=== PATIENT | male | born 1970 | race African-American/Black ===

== ENCOUNTER 2016-12-30 02:33 | Emergency (ER) | payer SELFPAY ==
[~2016-12-30] VITALS: Ht 180.3 cm; Wt 91.0 kg
[~2016-12-30 02:33] MED LIST: ADVA250A INH; ALBU0.08 NEB; ALBUAER3 INH; CETI10 PO; LORA10TA PO; MULT1TAB85 PO; NEBULIZER1 MI1
[2016-12-30 02:36] VITALS: BP 145/77; PULSE 95; RESP 28; TEMP 98; O2SAT 98
[2016-12-30 02:55] VITALS: O2SAT 99
[2016-12-30] MEDS: RESP: ALBUTEROL 2.5 MG/IPRATROPIUM 0.5 MG NEB (SCH) INH ×2 (02:58→02:59)
[2016-12-30] MEDS ORDERED: methylPREDNISolone SOD SUCC 125 MG/2 ML VIAL IVP ONE (03:00)
[2016-12-30] MEDS ORDERED: SODIUM CHLORIDE 0.9% FLUSH 5 ML FLUSH IVF PRN (03:00)
--- NOTE | 2016-12-30 03:25 | RADRPT ---
EXAM DATE/TIME: 12/30/2016 03:05 [place] COMPARISON: CHEST SINGLE AP, April 02, 2016, 6:19. INDICATIONS : Short of breath. MEDICAL HISTORY : None. SURGICAL HISTORY : None. ENCOUNTER: Initial ACUITY: 1 day PAIN SCORE: 8/10 LOCATION: Bilateral chest FINDINGS: Single AP view of the chest. The lungs are clear. Cardiomediastinal silhouette within normal limits. No evidence of pleural effusion or pneumothorax. CONCLUSION: No acute cardiopulmonary disease identified. Gustavo Andersen MD on December 30, 2016 at 3:22 Board Certified Radiologist. This report was verified electronically.
[2016-12-30 03:30] LABS: AUTOMATED NEUTROPHIL # 3.6 TH/MM3 (1.8-7.7); BASOPHIL % 0.4 % (0.0-2.0); EOSINOPHIL # 0.1 TH/MM3 (0-0.4); EOSINOPHIL % 1.4 % (0.0-4.0); HEMATOCRIT 43.6 % (39.0-51.0); HEMO FLAGS DIFF FINAL; LYMPH % 38.7 % (9.0-44.0); LYMPHOCYTE # 3.2 TH/MM3 (1.0-4.8); MEAN CELL VOLUME 86.7 FL (80.0-100.0); MEAN CORPUSCULAR HEMOGLOBIN 28.6 PG (27.0-34.0); MEAN CORPUSCULAR HGB CONC 32.9 % (32.0-36.0); MONO % 16.5 % (0.0-8.0); PLATELET COUNT 161 TH/MM3 (150-450); RED BLOOD COUNT 5.03 MIL/MM3 (4.50-5.90); RED CELL DISTRIBUTION WIDTH 14.2 % (11.6-17.2); WHITE BLOOD COUNT 8.4 TH/MM3 (4.0-11.0)
[2016-12-30 03:41] LABS: ALT (GPT) 34 U/L (12-78); ANION GAP 9 MEQ/L (5-15); AST (GOT) 18 U/L (15-37); BICARBONATE 29.2 MEQ/L (21.0-32.0); BLOOD UREA NITROGEN 20 MG/DL (7-18); CHLORIDE 103 MEQ/L (98-107); GLOMERULAR FILTRATION RATE 94 ML/MIN (>89); POTASSIUM 3.2 MEQ/L (3.5-5.1); SODIUM (NA) 141 MEQ/L (136-145)
[2016-12-30 03:45] LABS: ALKALINE PHOSPHATASE 60 U/L (45-117); CREATINE KINASE 473 U/L (39-308); TOTAL BILIRUBIN ADULT 0.4 MG/DL (0.2-1.0)
[2016-12-30 03:58] LABS: CKMB 6.1 NG/ML (0.5-3.6)
--- NOTE | 2016-12-30 04:36 | PD ---
HPI Chief Complaint: Respiratory Distress Time Seen by Provider: 02:51 Travel History International Travel<30 days: Yes Contact w/Intl Traveler<30days: Yes Name of Country Traveled to: [place] Traveled to known affect area: No History of Present Illness HPI The patient is a 46 year old male who presents to the [facility] emergency department with a history of cough, wheezing, shortness of breath that first began yesterday. He reports that he has had to use his rescue inhaler more frequently because of this. The patient reports having a tightening sensation in his chest when he attempts to take a deep breath. He reports that he has been using his albuterol nebulizer treatment without relief this evening. The patient was brought in by ambulance services. The patient had IV access obtained prior to arrival and was given Solu-Medrol 125 mg IV, and albuterol nebulizer treatments were also provided prior to arrival. The patient reports that his cough is at times productive of a white sputum. The patient denies any recent fevers, neck pain, abdominal pain, vomiting, diarrhea, urinary symptoms, or neurologic symptoms. [facility] Past Medical History Narrative Medical The patient's past medical history is significant for asthma, seasonal allergies , and a history of a kidney stone. Asthma: Yes Diminished Hearing: No Kidney Stones: Yes Respiratory: Yes (ASTHMA) Immunizations Current: Yes Past Surgical History Narrative Surgical The patient's past surgical history is significant for surgery related to kidney stones, cyst removal from thumb. Endocrine Surgery: Yes (KIDNEY STONE) Other Surgery: Yes (CYST FROM LEFT THUMB) Social History Alcohol Use: Yes (RARELY) Tobacco Use: No Substance Use: No Allergies-Medications (Allergen,Severity, Reaction): Coded Allergies: No Known Allergies (Unverified , 12/30/16) Reported Meds & Prescriptions Reported Meds & Active Scripts Active Medrol Dosepak (Methylprednisolone) 4 Mg Dspk 4 Mg PO DIRECTED Per Pharmacist direction Doxycycline Hyclate 100 Mg Cap 100 Mg PO BID Albuterol Neb (Albuterol Sulfate) 2.5 Mg/3 Ml Neb 2.5 Mg NEB Q4HR NEB While awake Proair Hfa 8.5 GM Inh (Albuterol Sulfate) 90 Mcg/Act Aer 2 Puff INH Q6H PRN 108 mcg/actuation Nebulizer 1 Mis Mis 1 Ea .ROUTE DIRECTED Reported Advair Diskus Inh (Fluticasone-Salmeterol Inh) 250-50 Mcg/Blist Aer 2 Puff INH BID Rinse mouth after use. Multivitamin Men (Multiple Vitamins W/ Minerals) 1 Tab Tab 1 Tab PO DAILY Loratadine 10 Mg Tab 10 Mg PO DAILY Cetirizine (Cetirizine HCl) 10 Mg Tab 10 Mg PO DAILY Review of Systems Except as stated in HPI: all other systems reviewed are Neg General / Constitutional: No: Fever Eyes: No: Visual changes HENT: Positive: Rhinitis, Congestion, No: Headaches Cardiovascular: Positive: Chest Pain or Discomfort (chest tightness when attempting to take a deep breath), Dyspnea on exertion Respiratory: Positive: Cough, Shortness of Breath, Wheezing Gastrointestinal: No: Abdominal Pain Genitourinary: No: Dysuria Musculoskeletal: No: Pain Skin: No Rash Neurologic: No: Weakness Psychiatric: No: Depression Endocrine: No: Polydipsia Hematologic/Lymphatic: No: Easy Bruising Physical Exam Narrative General: The patient is a well-developed well-nourished male in no acute distress. Head and Neck exam: Head is normocephalic atraumatic. Eyes: EOMI, pupils are equal round and reactive to light. Nose: Midline septum with pink mucous membranes Mouth: Dentition unremarkable. Moist mucus membranes. Posterior oropharynx is not erythematous. No tonsillar hypertrophy. Uvula midline. Airway patent. Neck: No palpable lymphadenopathy. No nuchal rigidity. No thyromegaly. Cardiovascular: Regular rate and rhythm without murmurs, gallops, or rubs. Lungs: Soft expiratory wheezes audible throughout bilateral lung alberts, no rhonchi, no crackles, no accessory muscle use. No tripoding. No rocks as well as abdominal breathing. Abdomen: Soft, without tenderness to palpation in all 4 quadrants of the abdomen. No guarding, rebound, or rigidity. Normal bowel sounds are audible. Extremities: No clubbing, cyanosis, or edema. 2+ pulses in all 4 extremities. No calf tenderness on palpation. Back: No spinous process tenderness to palpation. No costovertebral angle tenderness to palpation. Neurologic Exam: Grossly nonfocal. Skin Exam: No rash noted. Intact skin that is warm and dry. Data Data Last Documented VS Vital Signs Date Time Temp Pulse Resp B/P Pulse Ox O2 Delivery O2 Flow Rate FiO2 12/30/16 02:55 99 Nasal Cannula 2 12/30/16 02:36 98.0 95 28 145/77 Orders Complete Blood Count With Diff (12/30/16 02:52) Comprehensive Metabolic Panel (12/30/16 02:52) B-Type Natriuretic Peptide (12/30/16 02:52) Magnesium (Mg) (12/30/16 02:52) Ckmb (Isoenzyme) Profile (12/30/16 02:52) Troponin I (12/30/16 02:52) Blood Culture (12/30/16 02:52) Iv Access Insert/Monitor (12/30/16 02:52) Electrocardiogram (12/30/16 02:52) Ecg Monitoring (12/30/16 02:52) Oximetry (12/30/16 02:52) Oxygen Administration (12/30/16 02:52) Chest, Single Ap (12/30/16 02:52) Sodium Chloride 0.9% Flush (Ns Flush) (12/30/16 03:00) Methylprednisolone So Succ Inj (Solumedr (12/30/16 03:00) Albuterol-Ipratropium Neb (Duoneb Neb) (12/30/16 03:00) CKMB (12/30/16 01:57) CKMB% (12/30/16 01:57) Labs Laboratory Tests Test 12/30/16 01:57 White Blood Count 8.4 TH/MM3 Red Blood Count 5.03 MIL/MM3 Hemoglobin 14.4 GM/DL Hematocrit 43.6 % Mean Corpuscular Volume 86.7 FL Mean Corpuscular Hemoglobin 28.6 PG Mean Corpuscular Hemoglobin 32.9 % Concent Red Cell Distribution Width 14.2 % Platelet Count 161 TH/MM3 Mean Platelet Volume 10.3 FL Neutrophils (%) (Auto) 43.0 % Lymphocytes (%) (Auto) 38.7 % Monocytes (%) (Auto) 16.5 % Eosinophils (%) (Auto) 1.4 % Basophils (%) (Auto) 0.4 % Neutrophils # (Auto) 3.6 TH/MM3 Lymphocytes # (Auto) 3.2 TH/MM3 Monocytes # (Auto) 1.4 TH/MM3 Eosinophils # (Auto) 0.1 TH/MM3 Basophils # (Auto) 0.0 TH/MM3 CBC Comment DIFF FINAL Differential Comment Sodium Level 141 MEQ/L Potassium Level 3.2 MEQ/L Chloride Level 103 MEQ/L Carbon Dioxide Level 29.2 MEQ/L Anion Gap 9 MEQ/L Blood Urea Nitrogen 20 MG/DL Creatinine 1.03 MG/DL Estimat Glomerular Filtration 94 ML/MIN Rate Random Glucose 108 MG/DL Calcium Level 8.3 MG/DL Magnesium Level 2.0 MG/DL Total Bilirubin 0.4 MG/DL Aspartate Amino Transf 18 U/L (AST/SGOT) Alanine Aminotransferase 34 U/L (ALT/SGPT) Alkaline Phosphatase 60 U/L Total Creatine Kinase 473 U/L Creatine Kinase MB 6.1 NG/ML Creatine Kinase MB % 1.3 % Troponin I LESS THAN 0.02 NG/ML B-Type Natriuretic Peptide 12 PG/ML Total Protein 7.0 GM/DL Albumin 3.7 GM/DL [facility] Medical Decision Making Medical Screen Exam Complete: Yes Emergency Medical Condition: Yes Medical Record Reviewed: Yes Interpretation(s) Laboratory Tests Test 12/30/16 01:57 White Blood Count 8.4 TH/MM3 Red Blood Count 5.03 MIL/MM3 Hemoglobin 14.4 GM/DL Hematocrit 43.6 % Mean Corpuscular Volume 86.7 FL Mean Corpuscular Hemoglobin 28.6 PG Mean Corpuscular Hemoglobin 32.9 % Concent Red Cell Distribution Width 14.2 % Platelet Count 161 TH/MM3 Mean Platelet Volume 10.3 FL Neutrophils (%) (Auto) 43.0 % Lymphocytes (%) (Auto) 38.7 % Monocytes (%) (Auto) 16.5 % Eosinophils (%) (Auto) 1.4 % Basophils (%) (Auto) 0.4 % Neutrophils # (Auto) 3.6 TH/MM3 Lymphocytes # (Auto) 3.2 TH/MM3 Monocytes # (Auto) 1.4 TH/MM3 Eosinophils # (Auto) 0.1 TH/MM3 Basophils # (Auto) 0.0 TH/MM3 CBC Comment DIFF FINAL Differential Comment Sodium Level 141 MEQ/L Potassium Level 3.2 MEQ/L Chloride Level 103 MEQ/L Carbon Dioxide Level 29.2 MEQ/L Anion Gap 9 MEQ/L Blood Urea Nitrogen 20 MG/DL Creatinine 1.03 MG/DL Estimat Glomerular Filtration 94 ML/MIN Rate Random Glucose 108 MG/DL Calcium Level 8.3 MG/DL Magnesium Level 2.0 MG/DL Total Bilirubin 0.4 MG/DL Aspartate Amino Transf 18 U/L (AST/SGOT) Alanine Aminotransferase 34 U/L (ALT/SGPT) Alkaline Phosphatase 60 U/L Total Creatine Kinase 473 U/L Creatine Kinase MB 6.1 NG/ML Creatine Kinase MB % 1.3 % Troponin I LESS THAN 0.02 NG/ML B-Type Natriuretic Peptide 12 PG/ML Total Protein 7.0 GM/DL Albumin 3.7 GM/DL Last Impressions Chest X-Ray 12/30/16 0252 Signed Impressions: Service Date/Time: Friday, December 30, 2016 03:05 - CONCLUSION: No acute cardiopulmonary disease identified. Gustavo Andersen MD Differential Diagnosis Asthma exacerbation, versus pneumonia, versus bronchitis Narrative Course During the course of the patients emergency department visit, the patients history, examination, and differential diagnosis were reviewed with the patient. The patient had IV access obtained and blood work sent for analysis. The patient was placed on a engine monitor with oximetry and blood pressure monitoring. An EKG was done on arrival. The patient's EKG showed no acute ST segment elevation. The patient was provided DuoNeb nebs 3. On reexamination, the patient had resolution of his wheezing. The patients laboratory studies were reviewed and remarkable for a CBC that shows a white count of 8.4, hemoglobin 14.4, platelets 161 with 16.5 monocytes, CMP is remarkable for potassium of 3.2 which was supplemented orally, BUN 20, glucose 108, cardiac enzymes are unremarkable, BNP is 12 Radiology studies were reviewed and remarkable for a chest x-ray that shows no acute abnormality. The patient's symptoms resolved after nebulizer treatments. The patient will be discharged home with a prescription for doxycycline and a Medrol Dosepak taper. He was instructed to continue use of his inhalers as previously instructed by his primary care doctor. The patient is resting comfortably and feels better, is alert and in no distress. The patients results and examination findings were discussed with the patient. The repeat examination is unremarkable and benign. The history, exam, diagnostic testing, and current condition do not suggest any significant pathology to warrant further testing, continued ED treatment, admission, or surgical evaluation at this point. The vital signs have been stable. The patient does not have uncontrollable pain, intractable vomiting, or other significant symptoms. The patient's condition is stable and appropriate for discharge. The patient will pursue further outpatient evaluation with a primary care physician or other designated or consulting physician as indicated in the discharge instructions. The patient expressed understanding and was agreeable with this plan. Diagnosis Primary Impression: Asthma exacerbation Additional Impression: Bronchitis Referrals: Primary Care Physician 3 days Patient Instructions: Asthma (ED), General Instructions Med/Other Pt SpecificInfo: Prescription(s) given Scripts Methylprednisolone Dosepak (Medrol Dosepak)4 Mg Dspk4 Mg PO DIRECTED #1 DSPK Ref 0 Per Pharmacist direction Prov:Angela Wei MD 12/30/16 Doxycycline Hyclate 100 Mg [id number] Mg PO BID #20 CAP Ref 0 Prov:Angela Wei MD 12/30/16 Disposition: 01 DISCHARGE HOME Condition: Stable Angela Wei MD Dec 30, 2016 04:35
[2016-12-30] MEDS ORDERED: MEDR4PAK PO (05:05)
[2016-12-30] MEDS ORDERED: DOXY100C PO (05:05)
[2016-12-30] MEDS ORDERED: POTASSIUM CHLORIDE 20 MEQ CONTROLLED RELEASE TAB PO ONE (05:15)
[2016-12-30 05:25] VITALS: BP 140/79
--- NOTE | 2016-12-30 19:52 | EKG ---
Date Performed: 12/30/2016 Time Performed: 02:38:30 PTAGE: 46 years EKG: Sinus rhythm WITH SINUS ARRHYTHMIA NORMAL ECG PREVIOUS TRACING : 04/19/2016 03.48 Compared to prior tracing no significant change DOCTOR: Raffi Burrows Interpretating Date/Time 12/30/2016 19:50:45
== END 2016-12-30 05:26 | disposition home or self-care (01) ==
LOC: NEPC 02:33
DX: J45.901 Unspecified asthma with (acute) exacerbation (principal); Z87.442 Personal history of urinary calculi
CPT/HCPCS: 71010; 80053; 82550; 82552; 83735; 83880; 84484; 85025; 87040; 93005; 94640; 94664

== ENCOUNTER 2017-01-05 01:27 | Emergency (ER) | payer SELFPAY ==
[~2017-01-05] VITALS: Ht 180.3 cm; Wt 100.0 kg
[~2017-01-05 01:27] MED LIST changes: +DOXY100C PO; +MEDR4PAK PO
[2017-01-05 02:02] VITALS: BP 145/86; PULSE 88; RESP 18; TEMP 98.1; O2SAT 98
[2017-01-05] MEDS ORDERED: PRED20 PO (03:33)
--- NOTE | 2017-01-05 03:34 | PD ---
HPI Chief Complaint: Respiratory Symptoms Time Seen by Provider: 03:28 Travel History International Travel<30 days: No Contact w/Intl Traveler<30days: No Traveled to known affect area: No History of Present Illness HPI 46 yo M. The patient arrives by EMS due to wheezing. He received albuterol en route and reports his wheezing has more or less resolved. He's had no chest pain fever or cough. He reports prednisone was very helpful. Albuterol inhalers at home were very helpful as well. He reports recently finishing a course of azithromycin and prednisone. Evidently he was seen here just recently for essentially the same complaint now workup at that time including chest x-ray comprehensive panel cardiac enzymes CBC was unremarkable. PFSH Past Medical History Asthma: Yes Diminished Hearing: No Kidney Stones: Yes Respiratory: Yes (ASTHMA) Immunizations Current: Yes Past Surgical History Endocrine Surgery: Yes (KIDNEY STONE) Other Surgery: Yes (CYST FROM LEFT THUMB) Social History Alcohol Use: Yes (RARELY) Tobacco Use: No Substance Use: No Allergies-Medications (Allergen,Severity, Reaction): Coded Allergies: No Known Allergies (Unverified , 01/05/17) Reported Meds & Prescriptions Reported Meds & Active Scripts Active Prednisone 20 Mg Tab 40 Mg PO DAILY 4 Days Take 40 mg (2 tablets) daily for 5 days Doxycycline Hyclate 100 Mg Cap 100 Mg PO BID Albuterol Neb (Albuterol Sulfate) 2.5 Mg/3 Ml Neb 2.5 Mg NEB Q4HR NEB While awake Proair Hfa 8.5 GM Inh (Albuterol Sulfate) 90 Mcg/Act Aer 2 Puff INH Q6H PRN 108 mcg/actuation Reported Advair Diskus Inh (Fluticasone-Salmeterol Inh) 250-50 Mcg/Blist Aer 2 Puff INH BID Rinse mouth after use. Multivitamin Men (Multiple Vitamins W/ Minerals) 1 Tab Tab 1 Tab PO DAILY Loratadine 10 Mg Tab 10 Mg PO DAILY Cetirizine (Cetirizine HCl) 10 Mg Tab 10 Mg PO DAILY Review of Systems Except as stated in HPI: all other systems reviewed are Neg General / Constitutional: No: Fever, Chills Respiratory: Positive: Cough, Shortness of Breath, Wheezing Physical Exam Narrative GENERAL: WNWD, 46 yo M, NAD, speaking full sentences SKIN: Warm and dry. HEAD: Atraumatic. Normocephalic. EYES: Pupils equal and round. No scleral icterus. No injection or drainage. ENT: No nasal bleeding or discharge. Mucous membranes pink and moist. NECK: Trachea midline. No JVD. CARDIOVASCULAR: Regular rate and rhythm. RESPIRATORY: Trace wheezing left lung. No accessory muscle use. No tachypnea. GASTROINTESTINAL: Abdomen soft, non-tender, nondistended. Hepatic and splenic margins not palpable. MUSCULOSKELETAL: Extremities without clubbing, cyanosis, or edema. No obvious deformities. NEUROLOGICAL: Awake and alert. No obvious cranial nerve deficits. Motor grossly within normal limits. Five out of 5 muscle strength in the arms and legs. Normal speech. PSYCHIATRIC: Appropriate mood and affect; insight and judgment normal. Data Data Last Documented VS Vital Signs Date Time Temp Pulse Resp B/P Pulse Ox O2 Delivery O2 Flow Rate FiO2 01/05/17 02:04 18 98 Room Air 01/05/17 02:02 98.1 88 145/86 VS reviewed MDM Medical Decision Making Medical Screen Exam Complete: Yes Emergency Medical Condition: Yes Medical Record Reviewed: Yes Differential Diagnosis Asthma, PNA, COPD, PTX Narrative Course Trace wheezing in ER. Pt states he feels much better. Work up at this point considered likely to be low yield. We'll send patient home with prednisone. Diagnosis Primary Impression: Asthma exacerbation Referrals: Primary Care Physician 2 days Additional Instructions: You have a choice when it comes to health care, and we are glad that you chose [facility]. Hopefully, we have met your expectations on today's visit. You are welcome to return to [facility] at any time, as we are committed to meeting the health care needs of our community. Med/Other Pt SpecificInfo: Prescription(s) given Scripts Prednisone 20 Mg Tab40 Mg PO DAILY 4 Days Ref 0 Take 40 mg (2 tablets) daily for 5 days Prov:Saman Martinez MD 01/05/17 Disposition: DISCHARGE HOME Condition: Stable Saman Martinez MD Jan 05, 2017 03:34
== END 2017-01-05 04:39 | disposition home or self-care (01) ==
LOC: NEPE 01:27
DX: J45.901 Unspecified asthma with (acute) exacerbation (principal)
CPT/HCPCS: 99284

== ENCOUNTER 2017-02-26 10:53 | Emergency (ER) | payer SELFPAY ==
[~2017-02-26] VITALS: Ht 172.7 cm; Wt 90.5 kg
[~2017-02-26 10:53] MED LIST changes: -MEDR4PAK PO; -NEBULIZER1 MI1; +PRED20 PO
[2017-02-26 10:58] VITALS: BP 114/62; PULSE 78; RESP 22; TEMP 98.8; O2SAT 96
--- NOTE | 2017-02-26 11:10 | PD ---
HPI Chief Complaint: Respiratory Symptoms Time Seen by Provider: 11:10 Travel History International Travel<30 days: No Contact w/Intl Traveler<30days: No Traveled to known affect area: No History of Present Illness HPI 46-year-old male came to the emergency room with history of shortness of breath for past 3-4 days. Patient has history of asthma and has been taking his inhaler but it's not helping. Patient says now he feels very tired. Oxygen saturation was relatively stable. He has never been hospitalized, ICU or intubation in the past. He says he's been coughing and brings out some clear phlegm. No history of fever or chills. No history of chest pain. [facility] Past Medical History Narrative Medical List of his past medical, surgical, social and family history is reviewed from the nursing note. Asthma: Yes Diminished Hearing: No Kidney Stones: Yes Respiratory: Yes (ASTHMA) Immunizations Current: Yes Past Surgical History Endocrine Surgery: Yes (KIDNEY STONE) Other Surgery: Yes (CYST FROM LEFT THUMB) Social History Alcohol Use: Yes (RARELY) Tobacco Use: No Substance Use: No Allergies-Medications (Allergen,Severity, Reaction): Coded Allergies: No Known Allergies (Unverified , 02/26/17) Comments No known drug allergies. Reported Meds & Prescriptions Reported Meds & Active Scripts Active Prednisone 20 Mg Tab 20 Mg PO BID 5 Days Ventolin Hfa 18 GM Inh (Albuterol Sulfate) 90 Mcg/Act Aer 2 Puff INH Q4-6H PRN Albuterol Neb (Albuterol Sulfate) 2.5 Mg/3 Ml Neb 2.5 Mg NEB Q4HR NEB While awake Proair Hfa 8.5 GM Inh (Albuterol Sulfate) 90 Mcg/Act Aer 2 Puff INH Q6H PRN 108 mcg/actuation Advair Diskus Inh (Fluticasone-Salmeterol Inh) 250-50 Mcg/Blist Aer 2 Puff INH BID Rinse mouth after use. Reported Mucinex Fast-Max DM Liq (Dextromethorphan-Guaifenesin Liq) 20-400 Mg/20 Ml Liq 20 Ml PO Q4H PRN Multivitamin Men (Multiple Vitamins W/ Minerals) 1 Tab Tab 1 Tab PO DAILY Loratadine 10 Mg Tab 10 Mg PO DAILY Cetirizine (Cetirizine HCl) 10 Mg Tab 10 Mg PO DAILY Narrative Medication List of his home medications reviewed from the nursing note. Review of Systems Except as stated in HPI: all other systems reviewed are Neg Physical Exam Narrative GENERAL: Awake, alert, moderate distress SKIN: Focused skin assessment warm/dry. HEAD: Atraumatic. Normocephalic. EYES: Pupils equal and round. No scleral icterus. No injection or drainage. ENT: No nasal bleeding or discharge. Mucous membranes pink and moist. NECK: Trachea midline. No JVD. CARDIOVASCULAR: Regular rate and rhythm. No murmur appreciated. RESPIRATORY: Decreased air entry, prolonged expiration with end expiratory wheeze GASTROINTESTINAL: Abdomen soft, non-tender, nondistended. Hepatic and splenic margins not palpable. MUSCULOSKELETAL: No obvious deformities. No clubbing. No cyanosis. No edema. NEUROLOGICAL: Awake and alert. No obvious cranial nerve deficits. Motor grossly within normal limits. Normal speech. PSYCHIATRIC: Appropriate mood and affect; insight and judgment normal. Data Data Last Documented VS Vital Signs Date Time Temp Pulse Resp B/P Pulse Ox O2 Delivery O2 Flow Rate FiO2 02/26/17 12:21 67 18 97 Aerosol Mask 02/26/17 11:27 123/87 02/26/17 10:58 98.8 Orders Ecg Monitoring (02/26/17 11:36) Iv Access Insert/Monitor (02/26/17 11:36) Oximetry (02/26/17 11:36) Oxygen Administration (02/26/17 11:36) Prednisone (Deltasone) (02/26/17 11:45) Albuterol-Ipratropium Neb (Duoneb Neb) (02/26/17 11:45) Sodium Chloride 0.9% Flush (Ns Flush) (02/26/17 11:45) Albuterol Neb (Albuterol Neb) (02/26/17 13:15) [facility] Medical Decision Making Medical Screen Exam Complete: Yes Emergency Medical Condition: Yes Medical Record Reviewed: Yes Differential Diagnosis Acute asthma exacerbation, status asthmaticus Narrative Course 11:53 AM patient is getting 3 duo nebs [id number] and by mouth prednisone. I' ll reassess him in a bit. 1:18 PM I just reassessed the patient. Breathing is significantly improved although there is still some end expiratory wheeze. Ordered 2 more albuterol nebulizer and then he'll be discharged home with prescriptions. Procedures EKG Prior to Arrival: No Diagnosis Primary Impression: Acute asthma exacerbation Qualified Code: J45.41 - Moderate persistent asthma with acute exacerbation Referrals: Primary Care Physician 3 days Additional Instructions: Please return to the ER if the condition worsens or any other new concerns. Take the albuterol inhaler 2 puffs every 4-6 hours for next 48 hours. Take the medication as per the prescription direction. Follow-up with your primary care in couple days. Med/Other Pt SpecificInfo: Prescription(s) given Scripts Prednisone 20 Mg Tab20 Mg PO BID 5 Days Ref 0 Prov:Nixon Guy MD 02/26/17 Albuterol 18 GM Inh (Ventolin Hfa 18 GM Inh)90 Mcg/Act Aer2 Puff INH Q4-6H PRN ( SHORTNESS OF BREATH) #1 INHALER Ref 0 Prov:Nixon Guy MD 02/26/17 Disposition: 01 DISCHARGE HOME Condition: Stable Nixon Guy MD February 26, 2017 11:10
[2017-02-26] MEDS ORDERED: PHEN1LIQ33 PO (11:22)
[2017-02-26 11:27] VITALS: BP 123/87; PULSE 89; RESP 17; O2SAT 97
[2017-02-26] MEDS ORDERED: SODIUM CHLORIDE 0.9% FLUSH 10 ML FLUSH IVF PRN (11:45)
[2017-02-26] MEDS ORDERED: predniSONE 20 MG TAB PO ONE (11:45)
[2017-02-26] MEDS ORDERED: ALBUAER3 INH (11:47)
[2017-02-26] MEDS ORDERED: ADVA250A INH (11:47)
[2017-02-26] MEDS ORDERED: ALBU0.08 NEB (11:47)
[2017-02-26] MEDS: RESP: ALBUTEROL 2.5 MG/IPRATROPIUM 0.5 MG NEB (SCH) INH ×2 (11:48→11:49)
[2017-02-26 12:21] VITALS: PULSE 67; RESP 18; O2SAT 97
[2017-02-26] MEDS ORDERED: PRED20 PO (13:20)
[2017-02-26] MEDS ORDERED: VENTAER INH (13:20)
[2017-02-26] MEDS: RESP: ALBUTEROL 2.5 MG/3 ML NEB (SCH) INH (13:34)
== END 2017-02-26 14:27 | disposition home or self-care (01) ==
LOC: NEPD 10:53
DX: J45.901 Unspecified asthma with (acute) exacerbation (principal)
CPT/HCPCS: 94640; 94664; 99283; J7512; J7613

== ENCOUNTER 2017-03-12 00:02 | Emergency (ER) | payer SELFPAY ==
[~2017-03-12] VITALS: Ht 172.7 cm; Wt 90.0 kg
[~2017-03-12 00:02] MED LIST changes: -DOXY100C PO; +PHEN1LIQ33 PO; +VENTAER INH
--- NOTE | 2017-03-12 00:05 | PD ---
HPI Chief Complaint: shortness of breath Time Seen by Provider: 00:05 Travel History International Travel<30 days: No Contact w/Intl Traveler<30days: No Traveled to known affect area: No History of Present Illness HPI 46-year-old male is a known asthmatic was brought in by EMS for shortness of breath and asthma exacerbation. Patient says he's been using his inhaler and also took one of his prednisone pills. 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 His inhaler was not working at this point. No history of fever or chills. Patient has never been hospitalized for his asthma or any ICU admissions. Vital signs were stable otherwise. He received 2 albuterol on route in the ambulance and says he feels little better. [facility] Past Medical History Narrative Medical List of his past medical, surgical, social and family history is reviewed from the nursing note. Asthma: Yes Diminished Hearing: No Kidney Stones: Yes Respiratory: Yes (ASTHMA) Immunizations Current: Yes Past Surgical History Endocrine Surgery: Yes (LITHOTRIPSY ) Other Surgery: Yes (CYST FROM LEFT THUMB REMOVED ) Social History Alcohol Use: Yes (RARELY) Tobacco Use: No Substance Use: No Allergies-Medications (Allergen,Severity, Reaction): Coded Allergies: No Known Allergies (Unverified , 02/26/17) Comments No known drug allergies. Reported Meds & Prescriptions Reported Meds & Active Scripts Active Prednisone 20 Mg Tab 20 Mg PO BID 5 Days Ventolin Hfa 18 GM Inh (Albuterol Sulfate) 90 Mcg/Act Aer 2 Puff INH Q4-6H PRN Prednisone 20 Mg Tab 20 Mg PO BID 5 Days Albuterol Neb (Albuterol Sulfate) 2.5 Mg/3 Ml Neb 2.5 Mg NEB Q4HR NEB While awake Reported [relvair inhailer] 1 Puff PO BID Allergy Odt (Loratadine) 10 Mg Tab 1 Tab PO DAILY Mucinex Fast-Max DM Liq (Dextromethorphan-Guaifenesin Liq) 20-400 Mg/20 Ml Liq 20 Ml PO Q4H PRN Narrative Medication List of his home medications reviewed from the nursing note. Review of Systems Except as stated in HPI: all other systems reviewed are Neg Physical Exam Narrative GENERAL: Awake, alert, moderate distress SKIN: Focused skin assessment warm/dry. HEAD: Atraumatic. Normocephalic. EYES: Pupils equal and round. No scleral icterus. No injection or drainage. ENT: No nasal bleeding or discharge. Mucous membranes pink and moist. NECK: Trachea midline. No JVD. CARDIOVASCULAR: Regular rate and rhythm. No murmur appreciated. RESPIRATORY: Decreased air entry with bilateral end expiratory wheeze. GASTROINTESTINAL: Abdomen soft, non-tender, nondistended. Hepatic and splenic margins not palpable. MUSCULOSKELETAL: No obvious deformities. No clubbing. No cyanosis. No edema. NEUROLOGICAL: Awake and alert. No obvious cranial nerve deficits. Motor grossly within normal limits. Normal speech. PSYCHIATRIC: Appropriate mood and affect; insight and judgment normal. Data Data Last Documented VS Vital Signs Date Time Temp Pulse Resp B/P Pulse Ox O2 Delivery O2 Flow Rate FiO2 03/12/17 01:21 92 18 115/66 99 03/12/17 00:11 Room Air 03/12/17 00:07 98.4 Orders Albuterol-Ipratropium Neb (Duoneb Neb) (03/12/17 00:15) Albuterol-Ipratropium Neb (Duoneb Neb) (03/12/17 00:07) [facility] Medical Decision Making Medical Screen Exam Complete: Yes Emergency Medical Condition: Yes Medical Record Reviewed: Yes Differential Diagnosis Acute asthma exacerbation Narrative Course 1:06 AM patient was given 3 duo nebs [id number]. I reassessed him not to long ago and his air entry has significantly improved. Patient agrees that he is feeling better. I will discharge him home. Procedures EKG Prior to Arrival: No Diagnosis Primary Impression: Acute asthma exacerbation Qualified Code: J45.41 - Moderate persistent asthma with acute exacerbation Referrals: Primary Care Physician 2 days Additional Instructions: Please return to the ER if the condition worsens or any other new concerns. Take 2 puffs of your inhaler every 4-6 hours till symptoms subside. Take the medications as per the prescription direction. Follow-up with your primary care in couple days. Med/Other Pt SpecificInfo: Prescription(s) given Scripts Prednisone 20 Mg Tab20 Mg PO BID 5 Days Ref 0 Prov:Nixon Guy MD 03/12/17 Albuterol 18 GM Inh (Ventolin Hfa 18 GM Inh)90 Mcg/Act Aer2 Puff INH Q4-6H PRN ( SHORTNESS OF BREATH) #1 INHALER Ref 0 Prov:Nixon Guy MD 03/12/17 Disposition: 01 DISCHARGE HOME Condition: Stable Nixon Guy MD March 12, 2017 00:05
[2017-03-12 00:07] VITALS: BP 119/72; PULSE 112; RESP 18; TEMP 98.4; O2SAT 98
[2017-03-12] MEDS ORDERED: RESP: ALBUTEROL 2.5 MG/IPRATROPIUM 0.5 MG NEB (PRN) ONE (00:07)
[2017-03-12] MEDS: RESP: ALBUTEROL 2.5 MG/IPRATROPIUM 0.5 MG NEB (SCH) INH ×3 (00:18→00:20)
[2017-03-12] MEDS ORDERED: [UNRECOGNIZED DRUG - OTHER] PO (00:21)
[2017-03-12] MEDS ORDERED: ALLE10TA12 PO (00:21)
[2017-03-12] MEDS ORDERED: VENTAER INH (01:08)
[2017-03-12] MEDS ORDERED: PRED20 PO (01:08)
[2017-03-12 01:21] VITALS: BP 115/66
== END 2017-03-12 01:40 | disposition home or self-care (01) ==
LOC: NEPC 00:02
DX: J45.901 Unspecified asthma with (acute) exacerbation (principal); Z87.442 Personal history of urinary calculi
CPT/HCPCS: 94640; 94664; 99284

== ENCOUNTER 2017-07-05 20:16 | Emergency (ER) | payer SELFPAY ==
[~2017-07-05] VITALS: Ht 172.7 cm; Wt 90.0 kg
[~2017-07-05 20:16] MED LIST changes: -ADVA250A INH; +AFRI0.052 EACH NARE; -ALBUAER3 INH; -CETI10 PO; +FLUT1INH INH; -LORA10TA PO; -MULT1TAB85 PO; -PHEN1LIQ33 PO; -PRED20 PO
[2017-07-05 20:19] VITALS: BP 135/81; PULSE 87; RESP 18; TEMP 98.6; O2SAT 100
[2017-07-05 20:33] VITALS: O2SAT 99
[2017-07-05] MEDS ORDERED: SODIUM CHLOR 0.9% 1000 ML INJ 1,000 ML IV ONE (20:45)
[2017-07-05] MEDS ORDERED: PRED20 PO (20:46)
[2017-07-05] MEDS ORDERED: ALBUAER3 INH (20:46)
--- NOTE | 2017-07-05 20:46 | PD ---
HPI Chief Complaint: Respiratory Symptoms Time Seen by Provider: 20:20 Travel History International Travel<30 days: No Contact w/Intl Traveler<30days: No Traveled to known affect area: No History of Present Illness HPI Patient is a 46-year-old male with history of asthma, presents to emergency room with complaints of asthma exacerbation. Patient reports that he has had asthma since he is a child, reports that he has asthma exacerbations with changes of weather. Patient reports that during this time of year, he usually has exacerbations of his asthma. He reports that around 5 PM today, he began feeling short of breath and began wheezing. Reports that he has had a cough with whitish phlegm production. Denies fevers, reports chills. Denies chest pain at this time. Patient was given Solu-Medrol 125 mg IV as well as 3 neb treatments by EMS, is feeling much better at this time. PFSH Past Medical History Asthma: Yes Diminished Hearing: No Kidney Stones: Yes Respiratory: Yes (ASTHMA) Immunizations Current: Yes Past Surgical History Endocrine Surgery: Yes (LITHOTRIPSY ) Other Surgery: Yes (CYST FROM LEFT THUMB REMOVED ) Social History Alcohol Use: Yes (RARELY) Tobacco Use: No Substance Use: No Allergies-Medications (Allergen,Severity, Reaction): Coded Allergies: No Known Allergies (Unverified , 06/09/17) Reported Meds & Prescriptions Reported Meds & Active Scripts Active Proair Hfa 8.5 GM Inh (Albuterol Sulfate) 90 Mcg/Act Aer 2 Puff INH Q4-6H PRN 108 mcg/actuation Prednisone 20 Mg Tab 20 Mg PO BID 5 Days Breo Ellipta Inh (Fluticasone/Vilanterol) 100-25 Mcg/Act Inh 1 Puff INH DAILY Use daily at the same time. Ventolin Hfa 18 GM Inh (Albuterol Sulfate) 90 Mcg/Act Aer 2 Puff INH Q4-6H PRN Albuterol Neb (Albuterol Sulfate) 2.5 Mg/3 Ml Neb 2.5 Mg NEB Q4HR NEB While awake Afrin Nasal Smilax (Oxymetazoline HCl) 0.05% Smilax 2-3 Smilax EACH NARE Q12H PRN Review of Systems General / Constitutional: No: Fever Eyes: No: Visual changes HENT: No: Headaches Cardiovascular: No: Chest Pain or Discomfort Respiratory: Positive: Cough, Shortness of Breath, Wheezing Gastrointestinal: No: Abdominal Pain Genitourinary: No: Dysuria Musculoskeletal: No: Pain Skin: No Rash Neurologic: No: Weakness Psychiatric: No: Depression Endocrine: No: Polydipsia Hematologic/Lymphatic: No: Easy Bruising Physical Exam Narrative GENERAL: Moderate distress SKIN: Focused skin assessment warm/dry. HEAD: Atraumatic. Normocephalic. EYES: Pupils equal and round. No scleral icterus. No injection or drainage. ENT: No nasal bleeding or discharge. Mucous membranes pink and moist. NECK: Trachea midline. No JVD. CARDIOVASCULAR: Regular rate and rhythm. No murmur appreciated. RESPIRATORY: No accessory muscle use. Patient with scattered expiratory wheezing bilaterally GASTROINTESTINAL: Abdomen soft, non-tender, nondistended. Hepatic and splenic margins not palpable. MUSCULOSKELETAL: No obvious deformities. No clubbing. No cyanosis. No edema. NEUROLOGICAL: Awake and alert. No obvious cranial nerve deficits. Motor grossly within normal limits. Normal speech. PSYCHIATRIC: Appropriate mood and affect; insight and judgment normal. Data Data Last Documented VS Vital Signs Date Time Temp Pulse Resp B/P (MAP) Pulse Ox O2 Delivery O2 Flow Rate FiO2 07/05/17 20:50 96 21 07/05/17 20:22 22 07/05/17 20:19 98.6 87 135/81 (99) Orders Orders Complete Blood Count With Diff (07/05/17 20:31) Basic Metabolic Panel (Bmp) (07/05/17 20:31) Iv Access Insert/Monitor (07/05/17 20:31) Ecg Monitoring (07/05/17 20:31) Oximetry (07/05/17 20:31) Chest, Single Ap (07/05/17 20:31) Albuterol-Ipratropium Neb (Duoneb Neb) (07/05/17 20:45) Us Leg Venous Doppler (07/05/17 ) Sodium Chlor 0.9% 1000 Ml Inj (Ns 1000 M (07/05/17 20:45) Electrocardiogram (07/05/17 20:25) Labs Laboratory Tests Test 07/05/17 20:38 White Blood Count 8.4 TH/MM3 Red Blood Count 5.31 MIL/MM3 Hemoglobin 15.1 GM/DL Hematocrit 47.0 % Mean Corpuscular Volume 88.4 FL Mean Corpuscular Hemoglobin 28.5 PG Mean Corpuscular Hemoglobin Concent 32.2 % Red Cell Distribution Width 13.8 % Platelet Count 151 TH/MM3 Mean Platelet Volume 9.8 FL Neutrophils (%) (Auto) 52.1 % Lymphocytes (%) (Auto) 33.5 % Monocytes (%) (Auto) 13.0 % Eosinophils (%) (Auto) 1.1 % Basophils (%) (Auto) 0.3 % Neutrophils # (Auto) 4.4 TH/MM3 Lymphocytes # (Auto) 2.8 TH/MM3 Monocytes # (Auto) 1.1 TH/MM3 Eosinophils # (Auto) 0.1 TH/MM3 Basophils # (Auto) 0.0 TH/MM3 CBC Comment DIFF FINAL Differential Comment Blood Urea Nitrogen 18 MG/DL Creatinine 1.09 MG/DL Random Glucose 128 MG/DL Calcium Level 8.2 MG/DL Sodium Level 137 MEQ/L Potassium Level 3.8 MEQ/L Chloride Level 102 MEQ/L Carbon Dioxide Level 27.3 MEQ/L Anion Gap 8 MEQ/L Estimat Glomerular Filtration Rate 88 ML/MIN MDM Medical Decision Making Medical Screen Exam Complete: Yes Emergency Medical Condition: Yes Interpretation(s) EKG at 2024: NSR at 90bpm, qt/qtc: 326/374 Vital Signs Date Time Temp Pulse Resp B/P (MAP) Pulse Ox O2 Delivery O2 Flow Rate FiO2 07/05/17 20:22 22 100 07/05/17 20:19 98.6 87 18 135/81 (99) 100 Differential Diagnosis Differential includes asthma exacerbation, pneumonia, bronchitis, electrolyte abnormality, viral syndrome Narrative Course Patient is a 46-year-old male who presents to emergency room with complaints of asthma exacerbation. Onset of symptoms around 5 PM today, asthma exacerbations with changes of weather. Patient has received Solu-Medrol 125 mg IV by EMS as well as 3 Treatments, he continues to have wheezing on exam. Neb treatment ordered for patient in the emergency room, x-ray of the chest ordered as patient is complaining of productive cough, ultrasound of his right leg ordered to rule out DVT as patient has been complaining of cramping to his right lower extremity. Patient with no recent travels or trips, no history of DVT in the past. 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 Vital Signs Date Time Temp Pulse Resp B/P (MAP) Pulse Ox O2 Delivery O2 Flow Rate FiO2 07/05/17 20:50 96 21 07/05/17 20:33 99 07/05/17 20:22 22 100 07/05/17 20:19 98.6 87 18 135/81 (99) 100 Laboratory Tests Test 07/05/17 20:38 White Blood Count 8.4 TH/MM3 (4.0-11.0) Red Blood Count 5.31 MIL/MM3 (4.50-5.90) Hemoglobin 15.1 GM/DL (13.0-17.0) Hematocrit 47.0 % (39.0-51.0) Mean Corpuscular Volume 88.4 FL (80.0-100.0) Mean Corpuscular Hemoglobin 28.5 PG (27.0-34.0) Mean Corpuscular Hemoglobin Concent 32.2 % (32.0-36.0) Red Cell Distribution Width 13.8 % (11.6-17.2) Platelet Count 151 TH/MM3 (150-450) Mean Platelet Volume 9.8 FL (7.0-11.0) Neutrophils (%) (Auto) 52.1 % (16.0-70.0) Lymphocytes (%) (Auto) 33.5 % (9.0-44.0) Monocytes (%) (Auto) 13.0 % (0.0-8.0) Eosinophils (%) (Auto) 1.1 % (0.0-4.0) Basophils (%) (Auto) 0.3 % (0.0-2.0) Neutrophils # (Auto) 4.4 TH/MM3 (1.8-7.7) Lymphocytes # (Auto) 2.8 TH/MM3 (1.0-4.8) Monocytes # (Auto) 1.1 TH/MM3 (0-0.9) Eosinophils # (Auto) 0.1 TH/MM3 (0-0.4) Basophils # (Auto) 0.0 TH/MM3 (0-0.2) CBC Comment DIFF FINAL Differential Comment Blood Urea Nitrogen 18 MG/DL (7-18) Creatinine 1.09 MG/DL (0.60-1.30) Random Glucose 128 MG/DL (74-106) Calcium Level 8.2 MG/DL (8.5-10.1) Sodium Level 137 MEQ/L (136-145) Potassium Level 3.8 MEQ/L (3.5-5.1) Chloride Level 102 MEQ/L (98-107) Carbon Dioxide Level 27.3 MEQ/L (21.0-32.0) Anion Gap 8 MEQ/L (5-15) Estimat Glomerular Filtration Rate 88 ML/MIN (>89) Last Impressions Chest X-Ray 07/05/172030 Signed Impressions: Service Date/Time: Wednesday, July 05, 2017 20:34 - CONCLUSION: No acute disease. Kevin Malik MD Patient reevaluated, patient feeling much better at this time. Reviewed all labs and all studies with patient in detail, patient will follow up with his primary care doctor and will return to ER as needed patient will have repeat us of leg in 1 week if swelling/pain persist Diagnosis Primary Impression: Acute asthma exacerbation Qualified Codes: J45.21 - Mild intermittent asthma with (acute) exacerbation Patient Instructions: General Instructions Departure Forms: Tests/Procedures, Work Release Enter return to work date: Jul 07, 2017 Additional Instructions: Please follow-up with your primary care doctor Please take all medications as prescribed Return to the emergency room if symptoms worsen or progress Return to the emergency room as needed Please have the ultrasound of your leg repeated in 1 week if pain/swelling persist Med/Other Pt SpecificInfo: Prescription(s) given Scripts Albuterol 8.5 GM Inh (Proair Hfa 8.5 GM Inh) 90 Mcg/Act Aer 2 PUFF INH Q4-6H Y for SHORTNESS OF BREATH, #1 INHALER 0 Refills 108 mcg/actuation Prov: Maryann Dawn DO 07/05/17 Prednisone (Prednisone) 20 Mg Tab 20 MG PO BID for 5 Days, #10 TAB 0 Refills Prov: Maryann Dawn DO 07/05/17 Disposition: 01 DISCHARGE HOME Condition: Stable Maryann Dawn DO Jul 05, 2017 20:46
[2017-07-05 20:50] VITALS: O2SAT 96
[2017-07-05] MEDS: RESP: ALBUTEROL 2.5 MG/IPRATROPIUM 0.5 MG NEB (SCH) INH (20:50)
--- NOTE | 2017-07-05 20:56 | RADRPT ---
EXAM DATE/TIME: 07/05/2017 20:34 [facility] COMPARISON: CHEST SINGLE AP, December 30, 2016, 3:05. INDICATIONS : Short of breath starting this evening. MEDICAL HISTORY : None. SURGICAL HISTORY : None. ENCOUNTER: Initial ACUITY: 1 day PAIN SCORE: 0/10 LOCATION: Bilateral chest FINDINGS: A single view of the chest demonstrates the lungs to be symmetrically aerated without evidence of mas s, infiltrate or effusion. The cardiomediastinal contours are unremarkable. Osseous structures are intact. CONCLUSION: No acute disease. Kevin Malik MD on July 05, 2017 at 20:55 Board Certified Radiologist. This report was verified electronically.
[2017-07-05 20:57] LABS: AUTOMATED NEUTROPHIL # 4.4 TH/MM3 (1.8-7.7); BASOPHIL % 0.3 % (0.0-2.0); EOSINOPHIL # 0.1 TH/MM3 (0-0.4); EOSINOPHIL % 1.1 % (0.0-4.0); HEMO FLAGS DIFF FINAL; LYMPH % 33.5 % (9.0-44.0); LYMPHOCYTE # 2.8 TH/MM3 (1.0-4.8); MEAN CELL VOLUME 88.4 FL (80.0-100.0); MEAN CORPUSCULAR HEMOGLOBIN 28.5 PG (27.0-34.0); MEAN CORPUSCULAR HGB CONC 32.2 % (32.0-36.0); NEUT % 52.1 % (16.0-70.0); PLATELET COUNT 151 TH/MM3 (150-450); RED BLOOD COUNT 5.31 MIL/MM3 (4.50-5.90); RED CELL DISTRIBUTION WIDTH 13.8 % (11.6-17.2); WHITE BLOOD COUNT 8.4 TH/MM3 (4.0-11.0)
[2017-07-05 21:11] LABS: BICARBONATE 27.3 MEQ/L (21.0-32.0); POTASSIUM 3.8 MEQ/L (3.5-5.1)
--- NOTE | 2017-07-05 21:33 | RADRPT ---
EXAM DATE/TIME: 07/05/2017 21:02 [facility] COMPARISON: No previous studies available for comparison. INDICATIONS : Right leg pain. MEDICAL HISTORY : Asthma. Right leg pain. SURGICAL HISTORY : Lithotripsy. Cyst removal from left thumb. ENCOUNTER: Initial ACUITY: 2 day PAIN SCORE: 6/10 LOCATION: Right leg. TECHNIQUE: Venous ultrasound of the leg was performed from the inguinal ligament to the proximal calf. Real-mahogany e, color Doppler and spectral tracing, compression and augmentation techniques were used. FINDINGS: There is normal compressibility of the deep venous system from the inguinal region to the proximal ca lf. No echogenic clot is seen in the lumen of the common femoral, femoral, popliteal, and posterior tibial veins. There is a normal response of the venous system to proximal and distal augmentation an d respiration. CONCLUSION: No acute disease. Kevin Malik MD on July 05, 2017 at 21:31 Board Certified Radiologist. This report was verified electronically.
--- NOTE | 2017-07-06 16:50 | EKG ---
Date Performed: 07/05/2017 Time Performed: 20:25:27 PTAGE: 46 years EKG: NORMAL Sinus rhythm WITH PAC'S ABNORMAL RHYTHM ECG PREVIOUS TRACING : 12/30/2016 02.38 DOCTOR: Mulugeta Willard Interpretating Date/Time 07/06/2017 16:49:19
[2017-07-28] MEDS ORDERED: VENTAER INH (09:01)
== END 2017-07-05 22:16 | disposition home or self-care (01) ==
LOC: NEPE 20:16
DX: J45.21 Mild intermittent asthma with (acute) exacerbation (principal); M79.604 Pain in right leg
CPT/HCPCS: 71010; 80048; 85025; 93005; 93971; 94640; 94664; 99285; J7030

== ENCOUNTER 2017-07-07 08:01 | Observation (INO) | payer SELFPAY ==
[2017-07-07] VITALS (7 sets, daily range): BP systolic 111–134; BP diastolic 60–98; PULSE 87–94; RESP 16–19; TEMP 98.2–98.8; O2SAT 96–100
[~2017-07-07] VITALS: Ht 172.7 cm; Wt 90.0 kg
[~2017-07-07 08:01] MED LIST changes: +ALBUAER3 INH; +PRED20 PO
[2017-07-07] MEDS ORDERED: SODIUM CHLORIDE 0.9% FLUSH 10 ML FLUSH IVF PRN (08:15)
[2017-07-07] MEDS: RESP: ALBUTEROL 2.5 MG/IPRATROPIUM 0.5 MG NEB (SCH) INH ×2 (08:23→08:24)
[2017-07-07 08:30] LABS: BLOOD GAS BASE EXCESS 2.6 mmol/L (-2-2); BLOOD GAS CARBOXYHEMOGLOBIN 0.3 % (0-4); BLOOD GAS HCO3 28 mmol/L (22-26); BLOOD GAS METHEMOGLOBIN 0.8 % (0-2); BLOOD GAS O2 HGB SATURATION 99 % (90-100); BLOOD GAS OXYGEN CONTENT 21.8 Vol % (12.0-20.0); BLOOD GAS PCO2 55 mmHg (38-42); BLOOD GAS PO2 313 mmHG (61-120); BLOOD GAS TOTAL HGB 15.2 G/DL (12.0-16.0); TEMP CORR TO 98.6
[2017-07-07 08:31] LABS: DRAW SITE RT RADIAL; FIO2 100 %; LITER FLOW 15 L/M; NUMBER OF ARTERIAL PUNCTURES 1; OXYGEN DEVICE NRB; STAT YES; ULNAR PULSE PRESENT
--- NOTE | 2017-07-07 08:31 | PD ---
HPI Chief Complaint: Respiratory Distress Time Seen by Provider: 08:14 Travel History International Travel<30 days: No Contact w/Intl Traveler<30days: No Traveled to known affect area: No History of Present Illness HPI 46-year-old male came to the emergency room with history of acute onset of shortness of breath. Patient is a known asthmatic and is poorly compliant. He has been in the emergency room several times with similar situation. In fact I had seen him not to long ago for acute asthma exacerbation and running out of his inhaler. Today he did use his inhaler and he is holding it. However symptoms worsen then he called EMS. He was given 3 albuterol's en route as well as IV magnesium 2 g started when his symptoms were not significantly improving. He was diaphoretic and in severe respiratory distress upon arrival. He was not in a condition to give history given his distress but he did say he did not have much relief from the nebulizers. He had also received IV Solu- Medrol. No history of chest pain. [facility] Past Medical History Narrative Medical List of his past medical, surgical, social and family history is reviewed from the nursing note. Asthma: Yes Diminished Hearing: No Kidney Stones: Yes Respiratory: Yes (ASTHMA) Immunizations Current: Yes ?: Not Past Surgical History Endocrine Surgery: Yes (LITHOTRIPSY ) Other Surgery: Yes (CYST FROM LEFT THUMB REMOVED ) Social History Alcohol Use: Yes (RARELY) Tobacco Use: No Substance Use: No Allergies-Medications (Allergen,Severity, Reaction): Coded Allergies: No Known Allergies (Unverified , 07/07/17) Comments No known drug allergies. Reported Meds & Prescriptions Reported Meds & Active Scripts Active Proair Hfa 8.5 GM Inh (Albuterol Sulfate) 90 Mcg/Act Aer 2 Puff INH Q4-6H PRN 108 mcg/actuation Prednisone 20 Mg Tab 20 Mg PO BID 5 Days Afrin Nasal [place] (Oxymetazoline HCl) 0.05% [place] 2-3 [place] EACH NARE Q12H PRN Narrative Medication List of his home medications reviewed from the nursing note. Review of Systems Except as stated in HPI: all other systems reviewed are Neg Physical Exam Narrative GENERAL: Awake, alert, significant distress SKIN: Diaphoresis HEAD: Atraumatic. Normocephalic. EYES: Pupils equal and round. No scleral icterus. No injection or drainage. ENT: No nasal bleeding or discharge. Mucous membranes pink and moist. NECK: Trachea midline. No JVD. CARDIOVASCULAR: Regular rate and rhythm. No murmur appreciated. RESPIRATORY: Significant respiratory distress with accessory muscles in use. Decreased air entry bilaterally with end expiratory wheeze. GASTROINTESTINAL: Abdomen soft, non-tender, nondistended. Hepatic and splenic margins not palpable. MUSCULOSKELETAL: No obvious deformities. No clubbing. No cyanosis. No edema. NEUROLOGICAL: Awake and alert. No obvious cranial nerve deficits. Motor grossly within normal limits. Normal speech. PSYCHIATRIC: Appropriate mood and affect; insight and judgment normal. Data Data Last Documented VS Vital Signs Date Time Temp Pulse Resp B/P (MAP) Pulse Ox O2 Delivery O2 Flow Rate FiO2 07/07/17 08:26 108 19 100 Non-Rebreather 15.00 07/07/17 08:25 100 07/07/17 08:02 98.8 134/98 (110) Orders Orders Complete Blood Count With Diff (07/07/17 08:14) Basic Metabolic Panel (Bmp) (07/07/17 08:14) B-Type Natriuretic Peptide (07/07/17 08:14) Prothrombin Time / Inr (Pt) (07/07/17 08:14) Ckmb (Isoenzyme) Profile (07/07/17 08:14) Troponin I (07/07/17 08:14) Arterial Blood Gas (Abg) (07/07/17 08:14) Iv Access Insert/Monitor (07/07/17 08:14) Electrocardiogram (07/07/17 08:14) Ecg Monitoring (07/07/17 08:14) Oximetry (07/07/17 08:14) Oxygen Administration (07/07/17 08:14) Chest, Pa & Lat (07/07/17 08:14) Sodium Chloride 0.9% Flush (Ns Flush) (07/07/17 08:15) Albuterol-Ipratropium Neb (Duoneb Neb) (07/07/17 08:15) Albuterol Neb Continuous Pack (Albuterol (07/07/17 09:00) Admit Order (Ed Use Only) (07/07/17 09:31) CKMB (07/07/17 08:20) CKMB% (07/07/17 08:20) Labs Laboratory Tests Test 07/07/17 08:05 07/07/17 08:20 Blood Gas Puncture Site RT RADIAL Blood Gas Patient Temperature 98.6 Blood Gas HCO3 28 mmol/L Blood Gas Base Excess 2.6 mmol/L Blood Gas Oxygen Saturation 99 % Arterial Blood pH 7.33 Arterial Blood Partial Pressure CO2 55 mmHg Arterial Blood Partial Pressure O2 313 mmHG Arterial Blood Oxygen Content 21.8 Vol % Arterial Blood Carboxyhemoglobin 0.3 % Arterial Blood Methemoglobin 0.8 % Blood Gas Hemoglobin 15.2 G/DL Oxygen Delivery Device NRB Blood Gas Liter Flow 15 L/M Blood Gas Inspired Oxygen 100 % White Blood Count 20.9 TH/MM3 Red Blood Count 5.20 MIL/MM3 Hemoglobin 15.2 GM/DL Hematocrit 46.7 % Mean Corpuscular Volume 89.8 FL Mean Corpuscular Hemoglobin 29.3 PG Mean Corpuscular Hemoglobin Concent 32.6 % Red Cell Distribution Width 14.0 % Platelet Count 186 TH/MM3 Mean Platelet Volume 9.9 FL Neutrophils (%) (Auto) 60.5 % Lymphocytes (%) (Auto) 25.5 % Monocytes (%) (Auto) 13.8 % Eosinophils (%) (Auto) 0.1 % Basophils (%) (Auto) 0.1 % Neutrophils # (Auto) 12.7 TH/MM3 Lymphocytes # (Auto) 5.3 TH/MM3 Monocytes # (Auto) 2.9 TH/MM3 Eosinophils # (Auto) 0.0 TH/MM3 Basophils # (Auto) 0.0 TH/MM3 CBC Comment AUTO DIFF Differential Total Cells Counted 100 Neutrophils % (Manual) 56 % Band Neutrophils % 1 % Lymphocytes % 31 % Monocytes % 11 % Neutrophils # (Manual) 12.1 TH/MM3 Metamyelocytes 1 % Differential Comment FINAL DIFF MANUAL Platelet Estimate NORMAL Platelet Morphology Comment NORMAL Ovalocytes 1+ Prothrombin Time 9.9 SEC Prothromb Time International Ratio 0.9 RATIO Blood Urea Nitrogen 16 MG/DL Creatinine 1.25 MG/DL Random Glucose 140 MG/DL Calcium Level 8.9 MG/DL Sodium Level 141 MEQ/L Potassium Level 4.2 MEQ/L Chloride Level 103 MEQ/L Carbon Dioxide Level 34.5 MEQ/L Anion Gap 4 MEQ/L Estimat Glomerular Filtration Rate 75 ML/MIN Total Creatine Kinase 81471 U/L Creatine Kinase MB 3.5 NG/ML Creatine Kinase MB % 0.0 % Troponin I 0.02 NG/ML B-Type Natriuretic Peptide 69 PG/ML MDM Medical Decision Making Medical Screen Exam Complete: Yes Emergency Medical Condition: Yes Medical Record Reviewed: Yes Interpretation(s) Twelve-lead EKG was reviewed by me. Normal sinus rhythm, normal axis, tachycardia, nonspecific ST-T wave changes. Heart rate of 102 bpm. Differential Diagnosis Acute asthma exacerbation, status asthmaticus, CHF, flash pulmonary edema Narrative Course 8:28 AM awaiting for the blood test results. Patient was given 3 duo nebs back- to-back. Currently he seems to be more relaxed and not in significant distress as much. He is slightly tachycardic although tachycardia is improving since he first came in. I'll give him a liter of fluid bolus. Awaiting for chest x-ray to be done and resulted as well. 9:19 AM I reassessed the patient and he is still wheezing although there entry is little better. Patient says subjectively he feels much better. His oxygen saturation has improved as well. I have ordered a continuous albuterol nebulizer for this patient. CBC suggestive of significant leukocytosis which could be due to the acute stress induced. Chest x-ray appears to be within normal limits. I would like to admit him given his significant respiratory distress upon presentation and the fact that he is still in bronchospasm. Patient does not have a primary care physician to follow-up with since he does not have insurance. Awaiting for the hospitalist to call back. Also looking back I found out that patient was in the emergency room 2 days ago for asthma exacerbation and was treated and given Solu-Medrol and sent home on prednisone. His leukocytosis could also be from that. Ever that makes me even more concerned given the fact that he is a bounce back within 2 days with such severity. Procedures EKG Prior to Arrival: No Diagnosis Primary Impression: Status asthmaticus Qualified Codes: J45.52 - Severe persistent asthma with status asthmaticus Additional Impressions: Leukocytosis Qualified Codes: D72.829 - Elevated white blood cell count, unspecified Respiratory distress Admitting Information Admitting Physician Requests: Observation Scripts Epinephrine Inj (Epipen 2-Ned Inj) 0.3 Mg/0.3 Ml Pfpen 0.3 MG IM ONCE Y for ALLERGIC REACTION, #1 PACK 0 Refills Prov: Shanna Rowland MD 07/08/17 Azithromycin (Azithromycin) 500 Mg Tab 500 MG PO DAILY for Infection, #4 TAB 0 Refills Prov: Shanna Rowland MD 07/08/17 Prednisone (Prednisone) 20 Mg Tab 40 MG PO DAILY for 3 Days, #6 TAB 0 Refills Prov: Shanna Rowland MD 07/08/17 Fluticasone-Vilanterol Inh (Breo Ellipta Inh) 100-25 Mcg/Act Inh 1 PUFF INH DAILY, #1 INHALER 4 Refills Use daily at the same time. Prov: Shanna Rowland MD 07/08/17 Albuterol 18 GM Inh (Ventolin Hfa 18 GM Inh) 90 Mcg/Act Aer 2 PUFF INH Q4-6H Y for SHORTNESS OF BREATH, #1 INHALER 0 Refills Prov: Shanna Rowland MD 07/08/17 Albuterol Neb (Albuterol Neb) 2.5 Mg/3 Ml Neb 2.5 MG NEB Q6HR for Breathing Treatment, #1 BOX 0 Refills q6hrs scheduled while awake for 4 days then as needed Prov: Shanna Rowland MD 07/08/17 Nixon Guy MD Jul 07, 2017 08:31
[2017-07-07 08:34] LABS: AUTOMATED NEUTROPHIL # 12.7 TH/MM3 (1.8-7.7); BASOPHIL % 0.1 % (0.0-2.0); EOSINOPHIL % 0.1 % (0.0-4.0); HEMATOCRIT 46.7 % (39.0-51.0); LYMPH % 25.5 % (9.0-44.0); LYMPHOCYTE # 5.3 TH/MM3 (1.0-4.8); MEAN CELL VOLUME 89.8 FL (80.0-100.0); MEAN CORPUSCULAR HEMOGLOBIN 29.3 PG (27.0-34.0); MEAN CORPUSCULAR HGB CONC 32.6 % (32.0-36.0); MONO % 13.8 % (0.0-8.0); NEUT % 60.5 % (16.0-70.0); PLATELET COUNT 186 TH/MM3 (150-450); WHITE BLOOD COUNT 20.9 TH/MM3 (4.0-11.0)
[2017-07-07 08:36] LABS: HEMO FLAGS AUTO DIFF
[2017-07-07 08:41] LABS: INTERNATIONAL NORMALIZED RATIO 0.9 RATIO; PROTHROMBIN TIME - PATIENT 9.9 SEC (9.8-11.6)
[2017-07-07 08:51] LABS: BICARBONATE 34.5 MEQ/L (21.0-32.0); POTASSIUM 4.2 MEQ/L (3.5-5.1)
[2017-07-07] MEDS ORDERED: RESP: ALBUTEROL 2.5MG/0.5ML CONTINUOUS NEB 12-PACK NEB SCH (09:00)
[2017-07-07 09:09] LABS: BANDS 1 % (0-6); METAMYELOCYTES 1 % (0-1); NEUTROPHIL # MANUAL DIFF 12.1 TH/MM3 (1.8-7.7); POLYS (SEG NEUTROPHILS) 56 % (16-70); WBC DIFF SAMPLE 100
[2017-07-07 09:10] LABS: OVALOCYTES 1+ (NORMAL); PLATELET ESTIMATE SMEAR NORMAL (NORMAL); PLATELET MORPHOLOGY NORMAL (NORMAL); SCAN/DIFF FINAL DIFF MANUAL
--- NOTE | 2017-07-07 09:27 | RADRPT ---
EXAM DATE/TIME: 07/07/2017 09:10 [place] COMPARISON: CHEST SINGLE AP, July 05, 2017, 20:34. CHEST PA & LAT, August 25, 2015, 1:29. INDICATIONS : Chest tightness with shortness of breath. MEDICAL HISTORY : None. SURGICAL HISTORY : None. ENCOUNTER: Initial ACUITY: 1 day PAIN SCORE: 0/10 LOCATION: Bilateral chest FINDINGS: PA and lateral views of the chest demonstrate normal-sized cardiac silhouette. No effusion, consolida tion, or pneumothorax is identified. The bones and soft tissues demonstrate no acute finding. CONCLUSION: No acute cardiopulmonary abnormality is identified. Jhonny Johnson MD on July 07, 2017 at 9:25 Board Certified Radiologist. This report was verified electronically.
[2017-07-07] MEDS ORDERED: SODIUM CHLORIDE 0.9% FLUSH 10 ML FLUSH IV FLUSH PRN (09:45)
[2017-07-07] MEDS ORDERED: LACTULOSE SYRUP 20 GM/30 ML CUP PO PRN (09:45)
[2017-07-07] MEDS ORDERED: ONDANSETRON HCL 4 MG/2 ML VIAL IVP PRN (09:45)
[2017-07-07] MEDS ORDERED: ACETAMINOPHEN 325 MG TAB PO PRN (09:45)
[2017-07-07] MEDS ORDERED: SENNOSIDES 8.6 MG TAB PO PRN (09:45)
[2017-07-07] MEDS ORDERED: NALOXONE HCL 0.4 MG/ML AMP IV PUSH PRN (09:45)
[2017-07-07] MEDS ORDERED: MAGNESIUM HYDROXIDE SUSP 30 ML CUP PO PRN (09:45)
[2017-07-07] MEDS ORDERED: BISACODYL 10 MG SUPP RECTAL PRN (09:45)
[2017-07-07] MEDS ORDERED: RESP: ALBUTEROL 2.5 MG/3 ML NEB (PRN) NEB (09:45)
[2017-07-07] MEDS ORDERED: AZITHROMYCIN INJ 500 MG in SODIUM CHLOR 0.9% 250 ML INJ 250 ML IV SCH (10:00)
[2017-07-07 10:19] LABS: CKMB 3.5 NG/ML (0.5-3.6)
[2017-07-07] MEDS ORDERED: cefTRIAXone INJ 1,000 MG in SODIUM CHLORIDE 0.9% INJ 100 ML IV SCH (11:00)
[2017-07-07] MEDS: methylPREDNISolone SOD SUCC 125 MG/2 ML VIAL IV PUSH SCH ×3 (11:56→21:00)
[2017-07-07] MEDS: RESP: ALBUTEROL 2.5 MG/IPRATROPIUM 0.5 MG NEB (SCH) NEB ×3 (12:00→19:23)
--- NOTE | 2017-07-07 12:04 | HHI.HP ---
[facility] Service [place] Primary Care Physician No Primary Care Physician Admission Diagnosis respiratory failure without hypoxia Diagnoses: Chief Complaint: SOB Travel History International Travel<30 Days: No Contact w/Intl Traveler <30 Da: No Traveled to Known Affected Are: No History of Present Illness 46-year-old male past medical history of mild intermittent asthma who presented with shortness of breathing. Patient stated that 2 days ago he presented to the emergency department due to shortness of breathing and a pruritic rash. He was told he had an asthma exacerbation was given prednisone and albuterol. Patient felt that symptoms improve but due to the pruritic rash he thought he was having allergic reaction to Benadryl. He stated that he also had swelling in his knees and his throat. Patient stated that Benadryl helped the rash and the swelling in his knees but he continued to feel swelling increase in his throat. Patient stated that shortness of breathing improved but this morning he abruptly had SOB. He denies any wheezing or upper respiratory symptoms such as cough or congestion. Patient denies any any new types of food or any new medication. EMS gave patient multiple albuterol treatment with no improvement in his breathing. He was then given IV Solu-Medrol. Patient stated that he feels that improved his breathing. All other review of system reviewed negative. Past Family Social History Past Medical History Asthma, mild intermittent at most patient uses his albuterol inhaler twice a month. hx of kidney stones Past Surgical History Lithotripsy repair of left thumb Reported Medications Proair Hfa 8.5 GM Inh (Albuterol Sulfate) 90 Mcg/Act Aer 2 Puff INH Q4-6H PRN 108 mcg/actuation Prednisone 20 Mg Tab 20 Mg PO BID 5 Days Breo Ellipta Inh (Fluticasone/Vilanterol) 100-25 Mcg/Act Inh 1 Puff INH DAILY Use daily at the same time. Ventolin Hfa 18 GM Inh (Albuterol Sulfate) 90 Mcg/Act Aer 2 Puff INH Q4-6H PRN Albuterol Neb (Albuterol Sulfate) 2.5 Mg/3 Ml Neb 2.5 Mg NEB Q4HR NEB While awake Afrin Nasal [place] (Oxymetazoline HCl) 0.05% [place] 2-3 [place] EACH NARE Q12H PRN Allergies: Coded Allergies: No Known Allergies (Unverified , 07/07/17) Active Ordered Medications Current Medications Sodium Chloride (NS Flush) 2 ml UNSCH PRN IVF FLUSH AFTER USING IV ACCESS; Start 07/07/17 at 08:15 Albuterol/ Ipratropium (Duoneb Neb) 1 ampule Q15M INH Last administered on 07/07 08:24; Start 07/07/17 at 08:15; Stop 07/07/17 at 08:46; Status DC Albuterol Sulfate (Albuterol Neb Continuous Pack) 2 pack Q6H NEB Last administered on 07/07/17 09:38; Start 07/07/17 at 09:00 Sodium Chloride (NS Flush) 2 ml UNSCH PRN IV FLUSH FLUSH AFTER USING IV ACCESS ; Start 07/07/17 at 09:45 Sodium Chloride (NS Flush) 2 ml BID IV FLUSH ; Start 07/07/17 at 21:00 Acetaminophen (Tylenol) 650 mg Q4H PRN PO TEMP > 100.4; Start 07/07/17 at 09:45 Ondansetron HCl (Zofran Inj) 4 mg Q6H PRN IVP NAUSEA OR VOMITING; Start at 09:45 Naloxone HCl (Narcan Inj) 0.4 mg UNSCH PRN IV PUSH SEE LABEL COMMENTS; Start at 09:45 Senna/Docusate Sodium ([place]-Colace) 1 tab BID PO ; Start 07/07/17 at 21:00 Magnesium Hydroxide (Milk Of Magnesia Liq) 30 ml Q12H PRN PO MILD - MODERATE CONSTIPATION; Start 07/07/17 at 09:45 Sennosides (Senokot) 17.2 mg Q12H PRN PO MODERATE - SEVERE CONSTIPATION; Start 07/07/17 at 09:45 Bisacodyl (Dulcolax Supp) 10 mg DAILY PRN RECTAL SEVERE CONSITIPATION; Start at 09:45 Lactulose (Lactulose Liq) 30 ml DAILY PRN PO SEVERE CONSITIPATION; Start at 09:45 Methylprednisolone Sodium Succinate (SoluMEDROL INJ) 60 mg Q6H IV PUSH ; Start 07/07/17 at 10:00 Albuterol/ Ipratropium (Duoneb Neb) 1 ampule Q4HR NEB NEB ; Start 07/07/17 at 12:00 Albuterol Sulfate (Albuterol Neb) 2.5 mg Q2HR NEB PRN NEB SOB/wheezing; Start 07/07/17 at 09:45 Ceftriaxone Sodium 1000 mg/ Sodium Chloride 100 ml @ 200 mls/hr Q24H IV ; Start 07/07/17 at 11:00 Azithromycin 500 mg/Sodium Chloride 250 ml @ 250 mls/hr Q24H IV ; Start at 10:00 Family History Patient does not know his family history. Social History Deny any tobacco or illicit drug use. Rarely drinks alcohol. Physical Exam Vital Signs Vital Signs Date Time Temp Pulse Resp B/P (MAP) Pulse Ox O2 Delivery O2 Flow Rate FiO2 07/07/17 09:37 97 Room Air 07/07/17 08:26 108 19 100 Non-Rebreather 15.00 07/07/17 08:25 100 Non-Rebreather 15.00 100 07/07/17 08:19 99 Non-Rebreather 15.00 07/07/17 08:02 98.8 134/98 (110) 99 Physical Exam GENERAL: This is a well-nourished, well-developed patient, in no apparent distress. SKIN: No rashes, ecchymoses or lesions. Cool and dry. HEAD: Atraumatic. Normocephalic. No temporal or scalp tenderness. EYES: Pupils equal round and reactive. Extraocular motions intact. No scleral icterus. No injection or drainage. ENT: Nose without bleeding, purulent drainage or septal hematoma. Throat without erythema, tonsillar hypertrophy or exudate. Uvula midline. Airway patent. NECK: Trachea midline. No JVD or lymphadenopathy. Supple, nontender, no meningeal signs. CARDIOVASCULAR: Regular rate and rhythm without murmurs, gallops, or rubs. RESPIRATORY: Clear to auscultation. Breath sounds equal bilaterally. No wheezes , rales, or rhonchi. GASTROINTESTINAL: Abdomen soft, non-tender, nondistended. No hepato-splenomegaly , or palpable masses. No guarding. MUSCULOSKELETAL: Extremities without clubbing, cyanosis, or edema. No joint tenderness, effusion, or edema noted. No calf tenderness. Negative Homans sign bilaterally. NEUROLOGICAL: Awake and alert. Cranial nerves II through XII intact. Motor and sensory grossly within normal limits. Five out of 5 muscle strength in all muscle groups. Normal speech. Laboratory Laboratory Tests Test 07/07/17 08:05 07/07/17 08:20 Blood Gas Puncture Site RT RADIAL Blood Gas Patient Temperature 98.6 Blood Gas HCO3 28 Blood Gas Base Excess 2.6 Blood Gas Oxygen Saturation 99 Arterial Blood pH 7.33 Arterial Blood Partial Pressure CO2 55 Arterial Blood Partial Pressure O2 313 Arterial Blood Oxygen Content 21.8 Arterial Blood Carboxyhemoglobin 0.3 Arterial Blood Methemoglobin 0.8 Blood Gas Hemoglobin 15.2 Oxygen Delivery Device NRB Blood Gas Liter Flow 15 Blood Gas Inspired Oxygen 100 White Blood Count 20.9 Red Blood Count 5.20 Hemoglobin 15.2 Hematocrit 46.7 Mean Corpuscular Volume 89.8 Mean Corpuscular Hemoglobin 29.3 Mean Corpuscular Hemoglobin Concent 32.6 Red Cell Distribution Width 14.0 Platelet Count 186 Mean Platelet Volume 9.9 Neutrophils (%) (Auto) 60.5 Lymphocytes (%) (Auto) 25.5 Monocytes (%) (Auto) 13.8 Eosinophils (%) (Auto) 0.1 Basophils (%) (Auto) 0.1 Neutrophils # (Auto) 12.7 Lymphocytes # (Auto) 5.3 Monocytes # (Auto) 2.9 Eosinophils # (Auto) 0.0 Basophils # (Auto) 0.0 CBC Comment AUTO DIFF Differential Total Cells Counted 100 Neutrophils % (Manual) 56 Band Neutrophils % 1 Lymphocytes % 31 Monocytes % 11 Neutrophils # (Manual) 12.1 Metamyelocytes 1 Differential Comment FINAL DIFF MANUAL Platelet Estimate NORMAL Platelet Morphology Comment NORMAL Ovalocytes 1+ Prothrombin Time 9.9 Prothromb Time International Ratio 0.9 Blood Urea Nitrogen 16 Creatinine 1.25 Random Glucose 140 Calcium Level 8.9 Sodium Level 141 Potassium Level 4.2 Chloride Level 103 Carbon Dioxide Level 34.5 Anion Gap 4 Estimat Glomerular Filtration Rate 75 Total Creatine Kinase 14657 Creatine Kinase MB 3.5 Creatine Kinase MB % 0.0 Troponin I 0.02 B-Type Natriuretic Peptide 69 Result Diagram: 07/07/1781907/07/17819 Imaging Last Impressions Chest X-Ray 07/07/17813 Signed Impressions: Service Date/Time: Friday, July 07, 2017 09:10 - CONCLUSION: No acute cardiopulmonary abnormality is identified. MD Rolly Haro VTE Risk Assessment Caprinjoyce VTE Risk Assessment: No/Low Risk (score <= 1) Caprini Risk Assessment Model Point Value = 1 Point Value = 2 Point Value = 3 Point Value = 5 Age 41-60 Minor surgery BMI > 25 kg/m2 Swollen legs Varicose veins or History of unexplained or recurrent spontaneous Oral contraceptives or hormone replacement Sepsis (< 1 month) Serious lung disease, including pneumonia (< 1 month) Abnormal pulmonary function Acute myocardial infarction Congestive heart failure (< 1 month) History of inflammatory bowel disease Medical patient at bed rest Age 61-74 Arthroscopic surgery Major open surgery (> 45 min) Laparoscopic surgery (> 45 min) Malignancy Confined to bed (> 72 hours) Immobilizing plaster cast Central venous access Age >= 75 History of VTE Family history of VTE Factor V Leiden Prothrombin [id number] Lupus anticoagulant Anticardiolipin antibodies Elevated serum homocysteine Heparin-induced thrombocytopenia Other congenital or acquired thrombophilia Stroke (< 1 month) Elective arthroplasty Hip, pelvis, or leg fracture Acute spinal cord injury (< 1 month) Prophylaxis Regimen Total Risk Factor Score Risk Level Prophylaxis Regimen 0-1 Low Early ambulation 2 Moderate Order ONE of the following: *Sequential Compression Device (SCD) *Heparin 5000 units SQ BID 3-4 Higher Order ONE of the following medications: *Heparin 5000 units SQ TID *Enoxaparin/Lovenox 40 mg SQ daily (WT < 150 kg, CrCl > 30 mL/min) *Enoxaparin/Lovenox 30 mg SQ daily (WT < 150 kg, CrCl > 10-29 mL/min) *Enoxaparin/Lovenox 30 mg SQ BID (WT < 150 kg, CrCl > 30 mL/min) AND/OR *Sequential Compression Device (SCD) 5 or more Highest Order ONE of the following medications: *Heparin 5000 units SQ TID (Preferred with Epidurals) *Enoxaparin/Lovenox 40 mg SQ daily (WT < 150 kg, CrCl > 30 mL/min) *Enoxaparin/Lovenox 30 mg SQ daily (WT < 150 kg, CrCl > 10-29 mL/min) *Enoxaparin/Lovenox 30 mg SQ BID (WT < 150 kg, CrCl > 30 mL/min) AND *Sequential Compression Device (SCD) Assessment and Plan Assessment and Plan 46-year-old male history of mild intermittent asthma who presented with shortness of breathing Acute respiratory failure without hypoxia -Seems to have resolved quickly in the emergency department. -Chest x-ray negative. Oxygen saturation on room air 97%. Labs reviewed. Clinically lungs are clear to auscultation. -Based on labs, history, and clinical exam this sounds like more due to an allergic reaction since symptoms improved with Benadryl and Solu-Medrol. -Will continue with Solu-Medrol, nebulizer, and Benadryl. -Patient will need EpiPen on discharge. History of asthma, mild intermittent -Patient was treated with Solu-Medrol and nebulizer in the ED. He has no wheezing and in no respiratory distress. Unsure if patient had a asthma exacerbation but unlikely. -Continue with Solu-Medrol and nebulizer. -Monitor clinically. Leukocytosis -Patient was given prednisone. May be secondary to acute respiratory failure and steroid. -No clinical signs of infection. -Will continue to monitor. No indication for antibiotics at the moment. DVT prophylaxis -Low risk. SCDs. Encourage ambulation. Code Status full Discussed Condition With patient and his nurse Caity Knott MD Jul 07, 2017 12:04
[2017-07-07] MEDS: diphenhydrAMINE HCL 25 MG CAP PO SCH ×2 (12:15→18:00)
--- NOTE | 2017-07-07 20:39 | EKG ---
Date Performed: 07/07/2017 Time Performed: 08:28:33 PTAGE: 46 years EKG: SINUS TACHYCARDIA ABNORMAL RHYTHM ECG PREVIOUS TRACING : 07/05/2017 20.25 Compared to prior tracing no significant change DOCTOR: Vamsi Liz Interpretating Date/Time 07/07/2017 20:38:14
[2017-07-07] MEDS: SODIUM CHLORIDE 0.9% FLUSH 10 ML FLUSH IV FLUSH SCH (21:00)
[2017-07-07] MEDS: DOCUSATE SODIUM 50 MG/SENNA 8.6 MG TAB PO SCH (21:00)
[2017-07-08] VITALS (7 sets, daily range): BP systolic 103–125; BP diastolic 57–70; PULSE 72–90; RESP 18; TEMP 97.3–98; O2SAT 95–98
[2017-07-08] MEDS: RESP: ALBUTEROL 2.5 MG/IPRATROPIUM 0.5 MG NEB (SCH) NEB ×3 (00:07→11:43)
[2017-07-08] MEDS: methylPREDNISolone SOD SUCC 125 MG/2 ML VIAL IV PUSH SCH ×2 (04:14→09:13)
[2017-07-08] MEDS: diphenhydrAMINE HCL 25 MG CAP PO SCH ×3 (05:53→12:56)
[2017-07-08 08:40] LABS: MEAN CELL VOLUME 89.6 FL (80.0-100.0); MEAN CORPUSCULAR HEMOGLOBIN 28.7 PG (27.0-34.0); PLATELET COUNT 158 TH/MM3 (150-450); RED BLOOD COUNT 5.03 MIL/MM3 (4.50-5.90); RED CELL DISTRIBUTION WIDTH 13.9 % (11.6-17.2); REVIEW FLAG FINAL; WHITE BLOOD COUNT 17.8 TH/MM3 (4.0-11.0)
[2017-07-08] MEDS: DOCUSATE SODIUM 50 MG/SENNA 8.6 MG TAB PO SCH (09:00)
[2017-07-08 09:05] LABS: POTASSIUM 4.7 MEQ/L (3.5-5.1)
[2017-07-08] MEDS: SODIUM CHLORIDE 0.9% FLUSH 10 ML FLUSH IV FLUSH SCH (09:14)
--- NOTE | 2017-07-08 11:38 | HHI.PR ---
Subjective Remarks Pt feeling much better. SOB improved. No wheezing per patient. No CP/n/v comfortable going home today. states he has a nebulizer at home today Objective Vitals Vital Signs Date Time Temp Pulse Resp B/P (MAP) Pulse Ox O2 Delivery O2 Flow Rate FiO2 07/08/17 08:00 98.0 73 18 122/61 (81) 98 07/08/17 04:00 97.8 90 18 125/57 (79) 98 07/08/17 00:10 96 Nasal Cannula 3.00 07/08/17 00:00 97.8 72 18 120/70 (87) 96 07/07/17 20:00 98.2 89 18 113/64 (80) 96 07/07/17 16:30 98.3 87 19 118/60 (79) 98 07/07/17 16:00 98.6 90 16 111/64 (80) 98 07/07/17 15:30 99 Nasal Cannula 3.00 I/O 07/07/17 07/07/17 07/07/17 07/08/17 07/08/17 07/08/17 07:00 15:00 23:00 07:00 15:00 23:00 Intake Total 240 ml 240 ml Balance 240 ml 240 ml Intake Oral 240 ml 240 ml # Voids 2 4 # Bowel Movements 0 Result Diagram: 07/08/1770607/08/17706 Imaging Last Impressions Chest X-Ray 07/07/17 0814 Signed Impressions: Service Date/Time: Friday, July 07, 2017 09:10 - CONCLUSION: No acute cardiopulmonary abnormality is identified. Jhonny Johnson MD Objective Remarks GENERAL: This is a well-nourished, well-developed patient, appears comfortable EYES: Extraocular motions intact. ENT: Nose without drainage. Airway patent. NECK: Trachea midline. CARDIOVASCULAR: Regular rate and rhythm without murmurs RESPIRATORY: Breath sounds equal bilaterally. very faint exp wheeze noted on the left lung base GASTROINTESTINAL: Abdomen soft, non-tender, nondistended. MUSCULOSKELETAL: Extremities without edema. NEUROLOGICAL: Awake and alert. Cranial nerves II through XII intact. Motor and sensory grossly within normal limits. A/P Assessment and Plan 46-year-old male history of mild intermittent asthma who presented with shortness of breathing Acute respiratory failure without hypoxia/ asthma exacerbation -Seems to have resolved quickly in the emergency department. -Chest x-ray negative. Clinically lungs are mostly clear to auscultation except for very faint exp wheeze at the left lower base. -Based on labs, history, and clinical exam this sounds like more due to an allergic reaction since symptoms improved with Benadryl and Solu-Medrol. -Will transition him to po prednisone and continue breathing treatment. will do walk test as pt on 3L. If he passes walk test, he can be discharged home. If not will need to wean him off oxygen as he has no insurance. -Patient will need EpiPen on discharge. Leukocytosis -Patient was given prednisone. May be secondary to acute respiratory failure and steroid. -No clinical signs of infection. -Will continue to monitor. No indication for antibiotics at the moment. DVT prophylaxis -Low risk. SCDs. Encourage ambulation. Discharge Planning walk test and if he passes d/c home today Shanna Rowland MD Jul 08, 2017 11:37
[2017-07-08] MEDS ORDERED: VENTAER INH (11:40)
[2017-07-08] MEDS ORDERED: AZIT500T2 PO (11:40)
[2017-07-08] MEDS ORDERED: FLUT1INH INH (11:40)
[2017-07-08] MEDS ORDERED: ALBU0.08 NEB (11:40)
[2017-07-08] MEDS ORDERED: PRED20 PO (11:40)
[2017-07-08] MEDS ORDERED: AZITHROMYCIN 250 MG TAB PO SCH (11:45)
[2017-07-08] MEDS ORDERED: EPIP0.3I IM (14:16)
[2017-07-14 19:02] LABS: CRITICAL VALUE YES
[2017-07-28] MEDS ORDERED: VENTAER INH (09:01)
== END 2017-07-08 14:51 | disposition home or self-care (01) ==
LOC: NEPC 08:01 → NEDA 09:33 → OBSVTOIN 09:36 → INTOOBSV 09:36 → N04B 10:27
PROVIDERS: ADMIT Hospitalist; ATTEND Hospitalist
DX: J45.52 Severe persistent asthma with status asthmaticus (principal); D72.829 Elevated white blood cell count, unspecified; R00.0 Tachycardia, unspecified
CPT/HCPCS: 36600; 71020; 80048; 82550; 82552; 82805; 83880; 84484; 85007; 85027; 85610; 93005; 94620; 94640; 94644; 96374; 96376; 99285; G0378; J2930; J7611; 94664